=== PATIENT | female | born 1975 | race Caucasian/White ===

== ENCOUNTER 2020-01-15 06:27 | Emergency (ER) | payer SELFPAY ==
[~2020-01-15] VITALS: Ht 160 cm; Wt 95.5 kg
[~2020-01-15 06:27] MED LIST: ALBU5SOL10 IH; ALPR-624 PO; FLUO20CA39 PO; FLUT16SP2 NS; PANT40TA39 PO; PSEU-225 PO
[2020-01-15 08:07] VITALS: BP 109/59
== END 2020-01-15 08:09 ==
LOC: ER 06:27
DX: F10.129 Alcohol abuse with intoxication, unspecified (principal); Z79.899 Other long term (current) drug therapy; V98.8XXA Other specified transport accidents, initial encounter; Y93.89 Activity, other specified; Y92.488 Other paved roadways as the place of occurrence of the external cause; Y99.8 Other external cause status
CPT/HCPCS: 82948; 99283

== ENCOUNTER 2025-03-11 11:15 | Emergency (ER) | payer MEDICARE, MEDICAID ==
[~2025-03-11] VITALS: Ht 160 cm; Wt 71.2 kg
[2025-03-11 12:17] VITALS: TEMP 97.9
[2025-03-11 13:08] LABS: BASOPHILS % (AUTO) 0.6 % (0-1); EOSINOPHILS # (AUTO) 0.1 X10'3 (0-0.9); EOSINOPHILS % (AUTO) 1.2 % (0-6); HEMATOCRIT 38.9 % (35.0-45.0); HEMOGLOBIN 13.3 g/dl (12.0-16.0); LYMPHOCYTES # (AUTO) 1.2 X10'3 (1.1-4.8); LYMPHOCYTES % (AUTO) 14.4 % (21-51); MEAN CORPUSCULAR HEMOGLOBIN 31.6 PG (27.0-31.0); MEAN CORPUSCULAR HGB CONC 34.1 g/dL (33.0-36.5); MEAN CORPUSCULAR VOLUME 92.7 FL (78-98); MEAN PLATELET VOLUME 9.7 FL (7.4-10.4); MONOCYTES # (AUTO) 0.6 X10'3 (0-0.9); MONOCYTES % (AUTO) 6.9 % (2-12); NEUTROPHILS # (AUTO) 6.5 X10'3 (1.8-7.7); NEUTROPHILS % (AUTO) 76.9 % (42-75); PLATELET COUNT 231 X10'3 (140-440); RED CELL DISTRIBUTION WIDTH 13.7 % (11.5-14.5); WHITE BLOOD COUNT 8.5 X10'3 (4.5-11.0)
[2025-03-11 13:12] LABS: BILIRUBIN,URINE NEGATIVE (Neg); COLOR,URINE YELLOW (Yellow); GLUCOSE, URINE NEGATIVE (Neg); KETONES,URINE NEGATIVE (Neg); LEUKOCYTE ESTERASE ,URINE NEGATIVE (Neg); NITRITES, URINE NEGATIVE (Neg); OCCULT BLOOD,URINE NEGATIVE (Neg); PROTEIN,URINE NEGATIVE (Neg); UROBILINOGEN,URINE 0.2 E.U/dL (0.2-1.0)
[2025-03-11 13:20] LABS: CLARITY,URINE CLOUDY (Clear); UA COLLECTION TYPE FOLEY CATH
[2025-03-11 13:25] LABS: AMORPHOUS PHOSPHATES 2+
[2025-03-11 13:27] LABS: SQUAMOUS EPITHELIAL CELL,UR MODERATE /LPF (FEW)
[2025-03-11 13:28] LABS: MUCUS STRANDS FEW /LPF (Neg)
[2025-03-11 13:31] LABS: BACTERIA,URINE 2+ /HPF (Neg)
[2025-03-11 13:33] LABS: RBC,URINE NONE SEEN /HPF (0-2); WBC,URINE 0-4 /HPF (0-4)
[2025-03-11 13:57] LABS: ALANINE AMINOTRANSFERASE 26 U/L (12-78); ALBUMIN 3.6 G/DL (3.4-5.0); ALBUMIN/GLOBULIN RATIO 1.2 (1.1-1.5); ALKALINE PHOSPHATASE 43 IU/L (46-116); ANION GAP 7 (8-16); ASPARTATE AMINO TRANSFERASE 15 U/L (10-37); BILIRUBIN,TOTAL 0.4 MG/DL (0.1-1.0); BLOOD UREA NITROGEN 13 MG/DL (7-18); CALCIUM 8.7 MG/DL (8.5-10.1); CHLORIDE 107 MMOL/L (99-107); CREATININE 0.65 MG/DL (0.40-0.90); GLUCOSE 86 MG/DL (70-104); LIPASE 40 U/L (16-77); POTASSIUM 3.9 MMOL/L (3.5-5.1); SODIUM 146 MMOL/L (135-145); TOTAL CARBON DIOXIDE 32.1 MMOL/L (24-32); TOTAL PROTEIN 6.5 G/DL (6.4-8.2); eCRCL 86 ML/MIN; eGFR > 90 ML/MIN
[2025-03-11 14:27] VITALS: BP 120/64; PULSE 59; RESP 16; O2SAT 98
== END 2025-03-11 14:46 | disposition home or self-care (01) ==
LOC: ER 11:16
DX: R33.9 Retention of urine, unspecified (principal)
CPT/HCPCS: 36415; 51702; 51798; 80053; 81001; 83690; 85025; 87088; 99284; A4314; A4358; A5200

== ENCOUNTER 2025-07-27 20:46 | Emergency (ER) | payer MEDICARE, MEDICAID ==
[~2025-07-27] VITALS: Ht 160 cm; Wt 71.8 kg
[~2025-07-27 20:46] MED LIST changes: -FLUO20CA39 PO; +FLUO20CA41 PO
[2025-07-27 21:21] LABS: MEAN PLATELET VOLUME 10.2 FL (7.4-10.4); RED CELL DISTRIBUTION WIDTH 13.2 % (11.5-14.5)
--- NOTE | 2025-07-27 21:21 | RADIOLOGY REPORT ---
CLINICAL HISTORY: CP TECHNIQUE: Single view of the chest was obtained. COMPARISON: None FINDINGS: The heart size and pulmonary vasculature are normal. The lungs are clear. IMPRESSION: NO ACUTE CARDIOPULMONARY PROCESS.
[2025-07-27 21:39] LABS: CREATININE 0.57 MG/DL (0.40-0.90); TOTAL CARBON DIOXIDE 32.0 MMOL/L (24-32); eCRCL 97 ML/MIN; eGFR > 90 ML/MIN
[2025-07-27 21:47] LABS: PRO BRAIN NATRIURETIC PEPTIDE 237 PG/ML (0-125)
--- NOTE | 2025-07-28 00:05 | Physician Documentation ---
History of Present Illness ~ Chief Complaint: Abdominal Pain w/vomiting Stated Complaint: DIARRHEA/VOMITING Time Seen by MD: 00:03 Primary Medical Doctor: CHRISTOPHER MCKEON Patient presents to the emergency room with nausea and vomiting x2 days. Also endorses dysuria. No fevers. Mild epigastric pain as well. No chest pain. She has a Zofran at home but states it has not worked. Medication Reconciliation Allergies: Coded Allergies: No Known Allergies (Unverified , 02/10/12) Scheduled Alprazolam* (Xanax*), 0.5 MG PO TID, (Reported) Fluoxetine Hcl* (Prozac*), 30 MG PO DAILY, (Reported) Pantoprazole Sodium* (Protonix*), 20 MG PO DAILY, (Reported) Pseudoephedrine Hcl (Sudafed), 30 MG PO Q6H, (Reported) Miscellaneous Medications Albuterol Sulfate (Ventolin), 5 MG IH, (Reported) Fluticasone Propionate (Flonase), 16 GM NS, (Reported) Past Medical History Past Medical History: No Pertinent History Past Surgical History: no surgical history Alcohol Use: None Lives with: Family Lives In: Home Occupation: employed Review of Systems ROS All review of systems negative except as per HPI Physical Exam Vital Signs: Temperature: 98.3, Source: Oral, Heart Rate: 74, Respiratory Rate: 16, BP: 166/95, Pulse Oximetry: 100, Weight: 71.820 Oxygen Flow Rate: 0 Physical Exam General: Patient is awake, alert, oriented x4 in no acute distress Head: Normocephalic and atraumatic. Eyes: Conjunctival normal. EOMI. PERRL. ENT: Mucous membranes moist. Neck: Supple, trachea is midline. Chest: Clear to auscultation bilaterally without rales, rhonchi, or wheezes. There is no accessory muscle use or retractions. Cardiac: RRR without murmurs, gallops, or rubs. Abd: Soft, nondistended, nontender, with normoactive bowel sounds. No guarding, rebound, or rigidity. Progress Results/Orders Results/Orders Orders - KAVIN DE LOS SANTOS MD Straight Cath For Urine Sample (07/27/25 20:52) Chest,Single View (07/27/25 21:13) Monitor (07/27/25 21:01) Saline Lock (07/27/25 21:01) Oxygen (07/27/25 21:01) Electrocardiogram (07/27/25 21:01) Hs Troponin I W Calculations (07/28/25 00:01) Cult Urine + [place] [address] (07/28/25 00:55) Completed Orders - KAVIN DE LOS SANTOS MD Cbc/Diff (07/27/25 20:52) Lipase (07/27/25 20:52) CMP (07/27/25 20:52) Chest,Single View (07/27/25 21:13) PBNP (07/27/25 21:01) Hs Troponin I W Calculations (07/27/25 21:01) Hs Troponin I W Calculations (07/27/25 23:01) Ondansetron Disint. Tablet (Zofran Odt T (07/28/25 00:10) Ua W/Microscopic, Cult If Ind (07/28/25 00:18) Medications Received in ER Medications (Trade) Dose Ordered Sig/Efrain Route PRN Reason Start Time Stop Time Status Last Admin Dose Admin (Zofran ODT tablet) 8 mg ONCE ONCE PO 07/28/25 00:10 07/28/25 00:11 DC 07/28/25 00:31 8 MG Vital Signs 07/27/25 07/28/25 07/28/25 20:54 00:21 00:27 Temp 98.3 98.3 Pulse 74 65 Resp 16 18 B/P (MAP) 166/95 169/94 (119) Pulse Ox 100 99 O2 Flow Rate 0 0 Laboratory Tests Test 07/27/25 21:09 07/27/25 23:14 07/28/25 00:18 White Blood Count 7.1 Red Blood Count 4.32 Hemoglobin 13.9 Hematocrit 40.4 Mean Corpuscular Volume 93.5 Mean Corpuscular Hemoglobin 32.1 H Mean Corpuscular Hemoglobin Concent 34.4 Red Cell Distribution Width 13.2 Platelet Count 177 Mean Platelet Volume 10.2 Neutrophils (%) (Auto) 53.3 Lymphocytes (%) (Auto) 32.8 Monocytes (%) (Auto) 8.8 Eosinophils (%) (Auto) 3.9 Basophils (%) (Auto) 1.2 H Neutrophils # (Auto) 3.8 Lymphocytes # (Auto) 2.3 Monocytes # (Auto) 0.6 Eosinophils # (Auto) 0.3 Basophils # (Auto) 0.1 CBC Comment Sodium Level 144 Potassium Level 4.2 Chloride Level 107 Carbon Dioxide Level 32.0 Anion Gap 5 L Blood Urea Nitrogen 11 Creatinine 0.57 Estimated GFR/1.73 m2 > 90 BUN/Creatinine Ratio 19.3 Glucose Level 132 H Calcium Level 9.1 Total Bilirubin 0.7 Aspartate Amino Transf (AST/SGOT) 21 Alanine Aminotransferase (ALT/SGPT) 28 Alkaline Phosphatase 45 L Troponin I High Sensitivity 7 6 Pro-B-Type Natriuretic Peptide 237 H Total Protein 6.6 Albumin 3.8 Globulin 2.8 Albumin/Globulin Ratio 1.4 Lipase 39 Chemistry Comments Troponin I High Sens Percent Delta 14 Troponin I Hi Sens Absolute Change -1 Urine Specimen Description Cln catch midstream Urine Color Yellow Urine Clarity Slightly cloudy Urine pH 7.5 Urine Specific [place] 1.025 Urine Protein Negative Urine Glucose (UA) Negative Urine Ketones Negative Urine Occult Blood Negative Urine Nitrite Positive H Urine Bilirubin Negative Urine Urobilinogen 1.0 Urine Leukocyte Esterase Negative Urine RBC 0-2 Urine WBC 5-10 H Urine Squamous Epithelial Cells Few Urine Bacteria 4+ Urine Mucus Moderate Urine Culture Indicated Indicated Volume Urine Centrifuged 10 ml Urine Comment Medical Decision Making Findings Upon re-evaluation patient was feeling much better Patient presented to the emergency room for evaluation of vomiting and diarrhea. Differentials include but are not limited to gastroenteritis, dehydration, reflux, viral syndrome, food poisoning therefore emergent labs ordered. Labs significant for urinary tract infection. Patient is responding to therapy and I believe she will do well on outpatient basis. Departure Disposition: HOME / SELF CARE / HOMELESS Impression: Primary Impression: Acute gastroenteritis Additional Impression: Acute urinary tract infection Condition: Fair Discharge Instructions: Urinary Tract Infection, Adult Referrals: NO PRIMARY CARE PROVIDER (PCP) Prescriptions Cephalexin*Monohydrate* (Keflex*) 500 Mg Capsule 1 CAP PO Q12H for 10 Days, #20 CAP Prov: KAVIN DE LOS SANTOS MD 07/28/25 Promethazine Hcl (Promethegan) 25 Mg Supp.rect 25 MG RC Q6H PRN N/V, #10 SUPP Prov: KAVIN DE LOS SANTOS MD 07/28/25 Ondansetron 8mg ODT (Ondansetron Odt) 8 Mg Tab.rapdis 1 TAB PO Q6H for nausea/vomiting for 3 Days, #12 TAB 0 Refills Prov: KAVIN DE LOS SANTOS MD 07/28/25 Education Educated: Patient Educated regarding: diagnosis, treatment, need for follow up Signature Scribe Signature: No scribe Attestation: The note accurately reflects work and decisions made by me.Kavin De Los Santos MD 07/28/25 01:02 KAVIN DE LOS SANTOS MD Jul 28, 2025 00:05
[2025-07-28] MEDS: ondansetron 4mg rapidly disintigrating tab PO ONE (00:31)
[2025-07-28 00:37] LABS: LEUKOCYTE ESTERASE ,URINE NEGATIVE (Neg); NITRITES, URINE POSITIVE (Neg); OCCULT BLOOD,URINE NEGATIVE (Neg)
[2025-07-28 00:51] LABS: UA COLLECTION TYPE CLN CATCH MIDSTREAM
[2025-07-28 00:54] LABS: MUCUS STRANDS MODERATE /LPF (Neg); SQUAMOUS EPITHELIAL CELL,UR FEW /LPF (FEW)
[2025-07-28] MEDS ORDERED: CEPH-585 PO (01:02)
[2025-07-28] MEDS ORDERED: ONDA-245 PO (01:02)
[2025-07-28] MEDS ORDERED: PROM25SU9 RC (01:02)
[2025-07-28 01:27] VITALS: BP 128/72; PULSE 76; RESP 16; TEMP 98.3; O2SAT 98
--- NOTE | 2025-07-28 05:22 | ELECTROCARDIOGRAPH REPORT ---
[facility] Test Date: 2025-07-27 Test Time: 21:02:51 Pat Name: ROBIN SCHROEDER Department: EMERGENCY ROOM Room: Gender: F Food Safety Auditor: MICHELE : 1975 Requested By: AISSATOU KENNEY Order Number: [id number] Reading MD: Measurements Intervals [place] Rate: 66 P: 48 GA: 152 QRS: 53 QRSD: 96 T: 59 QT: 385 QTc: 404 Interpretive Statements Sinus rhythm Please click the below link to view image of tracing.
== END 2025-07-28 01:30 | disposition home or self-care (01) ==
LOC: ER 20:47
DX: K52.9 Noninfective gastroenteritis and colitis, unspecified (principal); N39.0 Urinary tract infection, site not specified; R06.02 Shortness of breath; Z79.899 Other long term (current) drug therapy
CPT/HCPCS: 36415; 71045; 80053; 81001; 83690; 83880; 84484; 85025; 87088; 87186; 93005; 99285

== ENCOUNTER 2025-07-30 17:33 | Emergency (ER) | payer MEDICARE, MEDICAID ==
[~2025-07-30] VITALS: Ht 160 cm; Wt 74.0 kg
[~2025-07-30 17:33] MED LIST changes: +CEPH-585 PO; +ONDA-245 PO; +PROM25SU9 RC
[2025-07-30 20:02] LABS: MEAN PLATELET VOLUME 10.3 FL (7.4-10.4); RED CELL DISTRIBUTION WIDTH 13.0 % (11.5-14.5)
[2025-07-30 20:13] LABS: CREATININE 0.87 MG/DL (0.40-0.90); TOTAL CARBON DIOXIDE 33.9 MMOL/L (24-32); eCRCL 63 ML/MIN; eGFR 69 ML/MIN
[2025-07-30 20:41] LABS: LEUKOCYTE ESTERASE ,URINE NEGATIVE (Neg); NITRITES, URINE NEGATIVE (Neg); OCCULT BLOOD,URINE NEGATIVE (Neg)
[2025-07-30 20:43] LABS: UA COLLECTION TYPE CLN CATCH MIDSTREAM
--- NOTE | 2025-07-30 20:44 | ELECTROCARDIOGRAPH REPORT ---
[facility] Test Date: 2025-07-30 Test Time: 20:43:02 Pat Name: ROBIN SCHROEDER Department: [facility]- Patient ID: [id number] Room: Gender: F Construction Estimator: : 1975 Requested By: HUDSON ADKINS Order Number: [id number] Reading MD: Dr. Ha Valencia Measurements Intervals [place] Rate: 54 P: 60 UT: 139 QRS: 66 QRSD: 80 T: 61 QT: 441 QTc: 418 Interpretive Statements Sinus bradycardia Anteroseptal infarct, age indeterminate Baseline wander in lead(s) V3 Electronically Signed On 08-05-2025 18:49:[address] Ha Valencia Please click the below link to view image of tracing.
[2025-07-30 20:49] LABS: AMORPHOUS PHOSPHATES 3+; MUCUS STRANDS FEW /LPF (Neg); SQUAMOUS EPITHELIAL CELL,UR FEW /LPF (FEW)
--- NOTE | 2025-07-30 22:43 | Physician Documentation ---
History of Present Illness ~ Chief Complaint: Syncope Stated Complaint: SYNCOPAL EPISODE Time Seen by MD: 18:38 Primary Medical Doctor: CHRISTOPHER Mode of Arrival: EMS HPI Is a 50-year-old female that presents to the emergency department for evaluation of nausea vomiting dizziness and near-syncope x3 weeks intermittently. Reports that she has been taking Cosentyx for a skin condition. She reports that the injections are once per week she has noticed that after a reinjection she has episodes of dizziness and near-syncope. Patient reports that she has also had increased pressure in her head with neck pain. Patient is able to easily move her neck and place her chin to her chest without discomfort does report that her neck is stiff the back that she feels like there is pressure in the top of her head. Patient denies fevers at this time. Medication Reconciliation Allergies: Coded Allergies: No Known Allergies (Unverified , 02/10/12) Scheduled Alprazolam* (Xanax*), 0.5 MG PO TID, (Reported) Cephalexin*Monohydrate* (Keflex*), 1 CAP PO Q12H Fluoxetine Hcl* (Prozac*), 30 MG PO DAILY, (Reported) Ondansetron 8mg ODT (Ondansetron Odt), 1 TAB PO Q6H Pantoprazole Sodium* (Protonix*), 20 MG PO DAILY, (Reported) Promethazine Hcl (Promethegan), 25 MG RC Q6H PRN N/V Pseudoephedrine Hcl (Sudafed), 30 MG PO Q6H, (Reported) Miscellaneous Medications Albuterol Sulfate (Ventolin), 5 MG IH, (Reported) Fluticasone Propionate (Flonase), 16 GM NS, (Reported) Past Medical History Past Medical History: No Pertinent History Past Surgical History: no surgical history Alcohol Use: None Lives with: Family Lives In: Home Occupation: employed Review of Systems ROS As stated above in the HPI, otherwise all systems are reviewed and negative. Physical Exam Vital Signs: Temperature: 98.0, Heart Rate: 59, Respiratory Rate: 16, BP: 12 8/65, Pulse Oximetry: 99, Weight: 74.000 Oxygen Flow Rate: 0 Physical Exam VITALS: Reviewed and as above. GENERAL: Alert, no apparent distress. HEENT: Normocephalic, atraumatic, PERRL, EOMI, dry mucosa, no erythema RESPIRATORY: Lungs clear, normal breath sounds, no respiratory distress. CHEST: No accessory muscle use, no retractions CV: Regular rate, rhythm, no edema, no murmur, No: JVD GI: Soft, non-tender, bowels sounds present, no rebound, guarding, or rigidity BACK: No CVA tenderness, or swelling MUSCULOSKELETAL No deformities, no edema, head and neck discomfort with examinat ion. SKIN: Warm and dry, no rash NEURO: Oriented x4, No motor or sensory deficit PSYCH: Normal mood and affect, no agitation Progress Results/Orders Results/Orders Orders - HUDSON ADKINS * Continue Ed Troponin Protoco (07/30/25 22:53) Completed Orders - HUDSON ADKINS Cbc/Diff (07/30/25 19:53) CMP (07/30/25 19:53) Stat Ekg (07/30/25 20:34) Ua W/Microscopic, Cult If Ind (07/30/25 20:18) Hs Troponin I W Calculations (07/30/25 23:55) Ketorolac Trometh 30mg/Ml Vial (Toradol (07/31/25 00:00) Medications Received in ER Medications (Trade) Dose Ordered Sig/Efrain Route PRN Reason Start Time Stop Time Status Last Admin Dose Admin (Toradol inj. 30mg/ml) 30 mg ONCE ONCE IV 07/31/25 00:00 07/31/25 00:01 DC 07/31/25 00:03 30 MG Vital Signs 07/30/25 07/30/25 07/30/25 07/30/25 17:44 17:52 18:15 19:03 Temp 97.3 Pulse 66 58 64 Resp 15 15 15 18 B/P (MAP) 170/90 152/88 (109) 150/96 (114) Pulse Ox 99 100 100 O2 Flow Rate 0 07/30/25 07/30/25 07/31/25 07/31/25 21:30 22:53 00:03 00:18 Temp 98.0 98.0 Pulse 59 56 60 Resp 16 18 16 16 B/P (MAP) 128/65 (86) 138/66 (90) 139/92 (108) Pulse Ox 99 100 96 O2 Flow Rate 0 0 Laboratory Tests Test 07/30/25 18:21 07/30/25 20:18 White Blood Count 6.6 Red Blood Count 4.23 Hemoglobin 13.7 Hematocrit 40.2 Mean Corpuscular Volume 94.9 Mean Corpuscular Hemoglobin 32.5 H Mean Corpuscular Hemoglobin Concent 34.2 Red Cell Distribution Width 13.0 Platelet Count 198 Mean Platelet Volume 10.3 Neutrophils (%) (Auto) 56.4 Lymphocytes (%) (Auto) 30.1 Monocytes (%) (Auto) 9.9 Eosinophils (%) (Auto) 2.6 Basophils (%) (Auto) 1.0 Neutrophils # (Auto) 3.7 Lymphocytes # (Auto) 2.0 Monocytes # (Auto) 0.7 Eosinophils # (Auto) 0.2 Basophils # (Auto) 0.1 CBC Comment Sodium Level 144 Potassium Level 3.7 Chloride Level 109 H Carbon Dioxide Level 33.9 H Anion Gap 1 L Blood Urea Nitrogen 16 Creatinine 0.87 Estimated GFR/1.73 m2 69 BUN/Creatinine Ratio 18.4 Glucose Level 92 Calcium Level 9.2 Total Bilirubin 0.3 Aspartate Amino Transf (AST/SGOT) 21 Alanine Aminotransferase (ALT/SGPT) 32 Alkaline Phosphatase 47 Troponin I High Sensitivity 5 Troponin I High Sens Percent Delta 16 Troponin I Hi Sens Absolute Change -1 Total Protein 6.7 Albumin 3.6 Globulin 3.1 Albumin/Globulin Ratio 1.2 Chemistry Comments Urine Specimen Description Cln catch midstream Urine Color Yellow Urine Clarity Cloudy Urine pH 8.5 Urine Specific [place] 1.015 Urine Protein Negative Urine Glucose (UA) Negative Urine Ketones Negative Urine Occult Blood Negative Urine Nitrite Negative Urine Bilirubin Negative Urine Urobilinogen 0.2 Urine Leukocyte Esterase Negative Urine RBC 0-2 Urine WBC 0-4 Urine Squamous Epithelial Cells Few Urine Amorphous Phosphates 3+ Urine Bacteria None seen Urine Mucus Few Urine Culture Indicated Not ind Volume Urine Centrifuged 10 ml Urine Comment Medical Decision Making Findings This patient presents with a headache most consistent with benign headache from either tension type headache vs migraine. Symptoms also consistent with medication reaction at this time. Patient reports symptoms consistently occur around Cosentyx administration weekly. Low suspicion for infectious component. Neurologic exam without evidence of meningismus, AMS, focal neurologic findings so doubt meningitis, encephalitis, stroke. Presentation not consistent with acute intracranial bleed to include SAH (lack of risk factors, headache histor y). No history of trauma so doubt ICH. Given history and physical temporal arteritis unlikely, as is acute angle closure glaucoma. Doubt carotid artery dissection given no focal neuro deficits, no neck trauma or recent neck strain. Patient with no signs of increased intracranial pressure or weight loss and history and physical suggest more benign headache so less likely mass effect in brain from tumor or abscess or idiopathic intracranial hypertension. Pain was controlled with headache cocktail and patient discharged home with PMD follow up. We will follow up with primary care provider. He will return to the emergency department with any worsening or recurrent symptoms or any additional concerning symptoms that we discussed here today i.e. increased headache blurry vision nausea vomiting increased pressure in her head fevers or any other concerning symptoms. Differential Dx:Considerations: Include: anemia, CVA, cerebral occlusion, cerebral thrombosis, dehydration, dysrhythmia, electrolyte disorder, encephalopathy, hypoglycemia, hypovolemia, labyrinthitis, Meniere's disease, myocardial infarction, pulmonary embolus, TIA, vasovagal, VBI, vertigo central, vertigo peripheral, vestibular neuronitis, other Departure Disposition: HOME / SELF CARE / HOMELESS Impression: Primary Impression: Dizziness Additional Impressions: Medication reaction Headache Condition: Stable Discharge Instructions: Dizziness Additional Instructions: This patient presents with a headache most consistent with benign headache from either tension type headache vs migraine. Symptoms also consistent with medication reaction at this time. Patient reports symptoms consistently occur around Cosentyx administration weekly. Low suspicion for infectious component. Neurologic exam without evidence of meningismus, AMS, focal neurologic findings so doubt meningitis, encephalitis, stroke. Presentation not consistent with acute intracranial bleed to include SAH (lack of risk factors, headache history). No history of trauma so doubt ICH. Given history and physical temporal arteritis unlikely, as is acute angle closure glaucoma. Doubt carotid artery dissection given no focal neuro deficits, no neck trauma or recent neck strain. Patient with no signs of increased intracranial pressure or weight loss and history and physical suggest more benign headache so less likely mass effect in brain from tumor or abscess or idiopathic intracranial hypertension. Pain was controlled with headache cocktail and patient discharged home with PMD follow up. We will follow up with primary care provider. He will return to the emergency department with any worsening or recurrent symptoms or any additional concerning symptoms that we discussed here today i.e. increased headache blurry vision nausea vomiting increased pressure in her head fevers or any other concerning symptoms. Referrals: NO PRIMARY CARE PROVIDER (PCP) Education Educated: Patient Educated regarding: diagnosis, treatment, need for follow up Signature Scribe Signature: A Attestation: Scribed for Hudson Adkins by BILL Farias . 07/31/25 00:25 HUDSON ADKINS Jul 30, 2025 22:43
[2025-07-31] MEDS: ketorolac trometh 30MG/ML vial 30 MG/ML VIAL IV ONE (00:03)
[2025-07-31 00:39] VITALS: BP 148/84; PULSE 60; RESP 18; TEMP 98; O2SAT 98
== END 2025-07-31 00:47 | disposition home or self-care (01) ==
LOC: ER 17:33
DX: R42 Dizziness and giddiness (principal); T50.905A Adverse effect of unspecified drugs, medicaments and biological substances, initial encounter; R51.9 Headache, unspecified; Y92.89 Other specified places as the place of occurrence of the external cause
CPT/HCPCS: 36415; 80053; 81001; 84484; 85025; 93005; 96374; 99285; J1885